=== PATIENT | female | born 1960 | race Caucasian/White ===

== ENCOUNTER 2021-12-23 09:00 | Outpatient (CLI) | payer BC | END 2021-12-23 09:01 | disposition home or self-care (01) | LOC: CSHMAMMO 09:00 | PROVIDERS: ATTEND Obstetrics & Gynecology | DX: Z12.31 Encounter for screening mammogram for malignant neoplasm of breast (principal); M85.80 Other specified disorders of bone density and structure, unspecified site; M81.0 Age-related osteoporosis without current pathological fracture | CPT/HCPCS: 77063; 77067; 77080 ==

== ENCOUNTER 2022-12-25 09:53 | Outpatient (CLI) | payer BC | END 2022-12-25 09:54 | disposition home or self-care (01) | LOC: CSHMAMMO 09:53 | PROVIDERS: ATTEND Obstetrics & Gynecology | DX: Z12.31 Encounter for screening mammogram for malignant neoplasm of breast (principal) | CPT/HCPCS: 77063; 77067 ==

== ENCOUNTER 2024-01-26 09:53 | Outpatient (CLI) | payer BC | END 2024-01-26 09:54 | disposition home or self-care (01) | LOC: CSHMAMMO 09:53 | PROVIDERS: ATTEND Obstetrics & Gynecology | DX: Z12.31 Encounter for screening mammogram for malignant neoplasm of breast (principal); M81.0 Age-related osteoporosis without current pathological fracture; M85.851 Other specified disorders of bone density and structure, right thigh; M85.852 Other specified disorders of bone density and structure, left thigh | CPT/HCPCS: 77063; 77067; 77080 ==